=== PATIENT | male | born 1960 | race Caucasian/White ===

== ENCOUNTER 2018-09-13 09:37 | Day surgery (SDC) | payer OTHER ==
[~2018-09-13 09:37] MED LIST: CEFAZOLIN 2 GM/D5W RTU 2 GM/50 ML RTUPB IV PRN; FENTANYL CITRATE INJ/PF 100 MCG/2 ML AMPUL ONE; MIDAZOLAM 2 MG/2 ML INJ ONE; PROPOFOL INJ 200 MG/20 ML VIAL IV ONE
[2018-09-13] MEDS ORDERED: CEFAZOLIN 2 GM/D5W RTU 2 GM/50 ML RTUPB IV ONE (09:51)
[2018-09-13] MEDS ORDERED: ALBUTEROL SULFATE 0.083% NEB 2.5 MG/3 ML AMPUL NEB ONE (10:25)
[2018-09-13 10:26] LABS: ANION GAP 12 (5-19); BLOOD UREA NITROGEN 21 mg/dL (7-20); CARBON DIOXIDE 27 mmol/L (22-30); CHLORIDE 103 mmol/L (98-107); GLUCOSE 146 mg/dL (75-110); POTASSIUM 4.7 mmol/L (3.6-5.0); SODIUM 141.6 mmol/L (137-145)
[2018-09-13 10:27] LABS: HEMATOCRIT 44.9 % (37.9-51.0); HEMOGLOBIN 15.4 g/dL (13.5-17.0); MEAN CORPUSCULAR HEMOGLOBIN 31.7 pg (27.0-33.4); MEAN CORPUSCULAR HGB CONC 34.2 g/dL (32.0-36.0); MEAN CORPUSCULAR VOLUME 93 fl (80-97); PLATELET COUNT 233 10^3/uL (150-450); RED BLOOD COUNT 4.84 10^6/uL (4.35-5.55); RED CELL DISTRIBUTION WIDTH 14.4 % (11.5-14.0)
[2018-09-13] MEDS ORDERED: LIDOCAINE 1% INJ-PF (10 MG/ML) 30 ML SDV ONE (10:37)
[2018-09-13] MEDS ORDERED: BUPIVACAINE HCL 0.5 % INJ/PF 30 ML SDV ONE (10:37)
[2018-09-13] MEDS ORDERED: METOCLOPRAMIDE HCL INJ/PF 10 MG/2 ML SDV ONE (10:50)
[2018-09-13] MEDS ORDERED: FAMOTIDINE INJ/PF 20 MG/2 ML SDV IV ONE (10:50)
[2018-09-13] MEDS ORDERED: DIPHENHYDRAMINE HCL 50 MG/ML VIAL IV PRN (13:02)
[2018-09-13] MEDS ORDERED: PROMETHAZINE HCL INJ 25 MG/1 ML VIAL IV PRN ×2 (13:02)
[2018-09-13] MEDS ORDERED: OXYCODONE-ACETAMINOPHEN 5-325 MG TABLET PO PRN ×3 (13:02→14:00)
[2018-09-13] MEDS ORDERED: MORPHINE SULFATE 10 MG/ML INJ IV PRN (13:02)
[2018-09-13] MEDS ORDERED: MEPERIDINE HCL/PF INJ 25 MG/1 ML DISP.SYRIN IV PRN (13:02)
[2018-09-13] MEDS ORDERED: FENTANYL CITRATE INJ/PF 100 MCG/2 ML AMPUL IV PRN ×3 (13:02)
[2018-09-13] MEDS ORDERED: KETOROLAC TROMETHAMINE 60 MG/2 ML SDV ONE (13:22)
[2018-09-13] MEDS ORDERED: ONDANSETRON HCL INJ/PF 4 MG/2 ML SDV IV PRN (14:02)
[2018-09-13 14:34] VITALS: BP 129/88
--- NOTE | 2018-09-13 20:17 | OPERATIVE REPORT E ---
Operative Report NAME: KRISTIAN SHANNON : 1960 AGE: 58Y DATE OF SURGERY: 09/13/2018 ROOM: PREOPERATIVE DIAGNOSIS: RIGHT RING TRIGGER FINGER. POSTOPERATIVE DIAGNOSIS: RIGHT RING TRIGGER FINGER. OPERATION: RIGHT RING FINGER A1 RADHA RELEASE WITH TENOSYNOVECTOMY. SURGEON: JULIETTE PRITCHETT M.D. ANESTHESIA: Local with MAC sedation. ESTIMATED BLOOD LOSS: Minimal. COMPLICATIONS: None. INDICATIONS: The patient is a 58-year-old man with pain and triggering of the right ring finger. He has undergone multiple cortisone injections with transient improvement. PROCEDURE: Following the induction of a local anesthetic administered by the surgeon with MAC sedation, the patient was placed supine on the operating room table. Bony prominences were padded. A tourniquet was placed proximally on the right arm but not inflated. The right upper extremity was sterilely prepped and draped in standard fashion. The arm was exsanguinated and the tourniquet inflated to 250 mmHg. Transverse incision was made in the distal palmar crease in line with the ring finger. Sharp dissection was performed through skin only. Blunt dissection to the subcutaneous tissue. Care was taken to identify and protect the nerves. Under 3.5 loupe magnification, the A1 radha was transected longitudinally. All tendons were pulled from the wound. Tenosynovectomy performed. There was some slight fraying of the superficialis tendon. Following complete release and tenosynovectomy, the finger was taken through full range of motion. There was no longer any locking or catching of the digit. The wound was irrigated. Skin reapproximated with 3-0 Monocryl. A bulky sterile dressing was then applied. The patient tolerated the procedure well without complication and went to the recovery room in stable condition. DICTATING PHYSICIAN: JULIETTE PRITCHETT M.D. [id number] PHY#: [id number] ID: [id number] JOB#: [id number] ACCT: [id number] cc:JULIETTE PRITCHETT M.D. >
--- NOTE | 2018-09-14 07:52 | EKG REPORT ---
SEVERITY:- OTHERWISE NORMAL ECG - SINUS RHYTHM BORDERLINE LEFT AXIS DEVIATION : Confirmed by: Ruthie Hutchison MD 14-Sep-2018 07:50:18
== END 2018-09-13 14:35 | disposition home or self-care (01) ==
LOC: OROUT 09:37
PROVIDERS: ATTEND Orthopaedic Surgery
DX: M65.341 Trigger finger, right ring finger (principal); E11.9 Type 2 diabetes mellitus without complications; I10 Essential (primary) hypertension; K21.9 Gastro-esophageal reflux disease without esophagitis; K44.9 Diaphragmatic hernia without obstruction or gangrene; F17.210 Nicotine dependence, cigarettes, uncomplicated; Z79.899 Other long term (current) drug therapy; Z79.84 Long term (current) use of oral hypoglycemic drugs
CPT/HCPCS: 36415; 85027; 80048; 93005; 93010; 94640; 26055; J2250; J3490 ×2; J1885; J3010; J2765; J2704; S0028; J0690; 1810

== ENCOUNTER 2020-07-09 05:34 | Day surgery (SDC) | payer OTHER ==
[~2020-07-09 05:34] MED LIST changes: +CEFAZOLIN 2 GM/D5W RTU 2 GM/50 ML RTUPB IV ONE; -FENTANYL CITRATE INJ/PF 100 MCG/2 ML AMPUL ONE; -MIDAZOLAM 2 MG/2 ML INJ ONE; -PROPOFOL INJ 200 MG/20 ML VIAL IV ONE
[2020-07-09] MEDS ORDERED: FENTANYL CITRATE INJ/PF 100 MCG/2 ML AMPUL ONE (06:41)
[2020-07-09] MEDS ORDERED: PROPOFOL INJ 200 MG/20 ML VIAL IV ONE ×2 (06:42→08:27)
[2020-07-09] MEDS ORDERED: ONDANSETRON HCL INJ/PF 4 MG/2 ML SDV ONE (06:42)
[2020-07-09] MEDS ORDERED: EPHEDRINE SULFATE INJ 50 MG/1 ML AMPULE ONE (06:42)
[2020-07-09] MEDS ORDERED: MIDAZOLAM 2 MG/2 ML INJ ONE (06:42)
[2020-07-09] MEDS ORDERED: BUPIVACAINE HCL 0.5 % INJ/PF 30 ML SDV ONE (07:16)
[2020-07-09] MEDS ORDERED: LIDOCAINE 1% INJ-PF (10 MG/ML) 30 ML SDV ONE (07:16)
[2020-07-09] MEDS ORDERED: FENTANYL CITRATE INJ/PF 100 MCG/2 ML AMPUL IV PRN ×3 (07:59)
[2020-07-09] MEDS ORDERED: MEPERIDINE HCL/PF INJ 25 MG/1 ML DISP.SYRIN IV PRN (07:59)
[2020-07-09] MEDS ORDERED: MORPHINE SULFATE 10 MG/ML INJ IV PRN (07:59)
[2020-07-09] MEDS ORDERED: OXYCODONE-ACETAMINOPHEN 5-325 MG TABLET PO PRN ×2 (07:59→08:58)
[2020-07-09] MEDS ORDERED: PROMETHAZINE HCL INJ 25 MG/1 ML VIAL IV PRN ×2 (07:59)
[2020-07-09] MEDS ORDERED: DIPHENHYDRAMINE HCL 50 MG/ML VIAL IV PRN (07:59)
--- NOTE | 2020-07-09 08:33 | Operative Report ---
Operative Report DATE OF SURGERY: 07/09/20 PREOPERATIVE DIAGNOSIS: 1. Left ring trigger finger. 2. Right index trigger finger POSTOPERATIVE DIAGNOSIS: 1. Left ring trigger finger. 2. Right index trigger finger OPERATION: 1. Left ring finger A1 leighton release. 2. Left ring finger flexor tenosynovectomy. 3. Right index A1 leighton release. 4. Right index finger flexor tenosynovectomy. 5. Right index finger FDS tendon recession SURGEON: JULIETTE PRITCHETT ANESTHESIA: LMAC COMPLICATIONS: None ESTIMATED BLOOD LOSS: Minimal PROCEDURE: Indications for procedure: The patient is a 60-year-old man with multiple trigger fingers. There is currently active triggering of the left ring finger and right index finger. He has failed nonoperative treatment including cortisone injections. Description of procedure: Following induction of a MAC anesthetic by the anesthesiologist, digital nerve block of the left ring finger and ulnar nerve block of the left wrist as well as digital nerve block of the right index finger and median nerve block at the right wrist was performed by surgeon. The patient received 2 g of Ancef. The patient was then positioned supine on the operating room table. All bony prominences were padded. Both upper extremities were sterilely prepped with ChloraPrep and draped in standard fashion. We first turn ed our attention to the left hand. The arm was exsanguinated and the tourniquet inflated to 250 mmHg. A transverse incision was made at the distal palmar crease in line with the ring finger. A sharp incision was performed through skin with blunt dissection down to the flexor tendon. Care was taken to identify and protect the digital arteries and nerves. The A1 leighton was transected and removed under 3.5 loupe magnification. Both tendons were pulled from the wound and tenosynovectomy was performed. The finger was taken through a full range of motion and there was normal gliding. The wound was then copiously irrigated the skin was reapproximated with 4-0 nylon suture and a sterile dressing was applied. We next turned our attention to the index finger the right upper extremity was exsanguinated and the tourniquet inflated to 250 mmHg. A transverse incision was made at the proximal palmar crease in line with the index finger. Sharp incision was performed through skin with blunt dissection down to the flexor tendon. Care was taken to identify and protect the digital nerves and arteries. The A1 leighton was transected. Both tendons were removed from the wound and tenosynovectomy was performed. Despite complete tenosynovectomy and complete release there was still catching of the tendon. A 50% recession of the ulnar band of the FDS was then performed. Following this for session there was normal gliding of the tendon within the sheath and no catching. The wound was then irrigated and the skin was reapproximated with 4-0 nylon suture. A bulky sterile dressing was then applied. The patient tolerated both procedures well without complication was brought recovery in stable condition.
[2020-07-09] MEDS ORDERED: ONDANSETRON HCL INJ/PF 4 MG/2 ML SDV IV PRN (08:59)
[2020-07-09 11:13] VITALS: BP 137/95
== END 2020-07-09 09:50 | disposition home or self-care (01) ==
LOC: OROUT 05:34
PROVIDERS: ATTEND Orthopaedic Surgery
DX: M65.321 Trigger finger, right index finger (principal); M65.342 Trigger finger, left ring finger; E11.9 Type 2 diabetes mellitus without complications; Z79.84 Long term (current) use of oral hypoglycemic drugs; Z79.899 Other long term (current) drug therapy; Z03.818 Encounter for observation for suspected exposure to other biological agents ruled out
CPT/HCPCS: 82962; 87635; 01810; 26055 ×2; 26145 ×2; 26160; J2250; J3010; J3490; J2405; J2704; J0690; C9803; 1810